=== PATIENT | female | born 2000 | race Caucasian/White ===

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

== ENCOUNTER 2018-06-23 12:18 | Emergency (ER) | payer OTHER, SELFPAY ==
--- NOTE | 2018-06-23 13:58 | RAD ---
2 VIEWS CHEST: Date: 06/23/18 COMPARISON: None. HISTORY: Cough and chest pain for a month. FINDINGS: Two views of the chest show normal sized cardiomediastinal silhouette. There is no evidence of consol idation, mass, or pleural effusion. The bones are unremarkable. IMPRESSION: No evidence of acute cardiopulmonary disease. POS: [facility]
[2018-06-23] MEDS ORDERED: Ketorolac Tromethamine 30 MG/ML VIAL ONE (14:33)
== END 2018-06-23 15:00 | disposition home or self-care (01) ==
LOC: ERS 12:18
DX: M94.0 Chondrocostal junction syndrome [Tietze] (principal); F41.9 Anxiety disorder, unspecified; Z71.6 Tobacco abuse counseling
CPT/HCPCS: 71046; 93005; 99406; J1885

== ENCOUNTER 2018-12-27 18:42 | Emergency (ER) | payer SELFPAY ==
--- NOTE | 2018-12-27 20:12 | RAD ---
RADIOGRAPH CHEST 2 VIEWS: DATE: 12/27/2018 HISTORY: 18-year-old female with cough and chest tightness FINDINGS: There is no airspace density, pulmonary edema, pleural effusion, pneumothorax, or cardiomegaly. IMPRESSION: No acute cardiopulmonary findings.
[2018-12-27] MEDS ORDERED: Dexamethasone 10 MG/ML VIAL ONE (20:31)
[2018-12-27] MEDS ORDERED: Ondansetron ODT 4 MG TAB ONE ×2 (20:31→20:33)
== END 2018-12-27 20:42 | disposition home or self-care (01) ==
LOC: ERS 18:42
DX: J20.9 Acute bronchitis, unspecified (principal); F41.9 Anxiety disorder, unspecified
CPT/HCPCS: 71046; J1100; Q0162

== ENCOUNTER 2019-10-19 08:37 | Emergency (ER) | payer SELFPAY ==
[2019-10-19 09:05] LABS: #Basophils 0.1 thou/uL (0.0-0.2); #Eosinphils 0.2 thou/uL (0.0-0.7); #Lymphocytes 1.8 thou/uL (1.20-3.40); #Monocytes 0.4 thou/uL (0.11-0.59); #Neutrophils 2.4 thou/uL (1.40-6.50); %Basophils 1.2 % (0.0-1.0); %Eosinophils 4.3 % (0.0-10.0); %Lymphocytes 37.4 % (28.0-48.0); %Monocytes 7.7 % (0.0-4.0); %Neutrophils 49.4 % (31.0-61.0); Hemoglobin 13.1 g/dL (12.0-16.0); Mean Corpuscular HGB CONC 32.9 g/dL (32.0-36.0); Mean Corpuscular Hemoglobin 30.6 pg (25.0-35.0); Mean Corpuscular Volume 92.9 fL (78.0-98.0); Mean Platelet Volume 9.5 fL (7.4-10.4); Platelet Count 205 thou/uL (130-400); RBC Distribution Width 11.1 % (11.5-14.5); Red Blood Cell (RBC) Count 4.27 mill/uL (4.00-5.20); White Blood Cell (WBC) Count 4.9 thou/uL (4.8-10.8)
[2019-10-19 09:28] LABS: ALT (SGPT) 9 U/L (8-55); AST (SGOT) 14 U/L (5-34); Albumin 4.3 g/dL (3.5-5.0); Alkaline Phosphatase 54 U/L (40-100); Anion Gap 9 mmol/L (10-20); BUN (Urea Nitrogen) 10 mg/dL (7.0-18.7); Bilirubin, Total 0.4 mg/dL (0.2-1.2); Calc. Creatinine Clearance 0 mL/min (70-130); Calcium 9.3 mg/dL (7.8-10.44); Carbon Dioxide 28 mmol/L (22-29); Chloride 107 mmol/L (98-107); Estimated GFR-MDRD 90; Glucose 82 mg/dL (70-105); Lipase 10 U/L (8-78); Potassium 4.5 mmol/L (3.5-5.1); Protein, Total 7.3 g/dL (6.0-8.3); Sodium 139 mmol/L (136-145)
[2019-10-19 09:54] LABS: MONO NEGATIVE CONTROL ZONE White (Negative) (White); MONO POSITIVE CONTROL Pink Line (Positive) (PINK/RED); Mononucleosis NEGATIVE (NEGATIVE)
[2019-10-19] MEDS ORDERED: Ketorolac Tromethamine 30 MG/ML VIAL ONE (10:24)
[2019-10-19 10:31] LABS: Bilirubin Negative (Negative); Blood, Urine Negative (Negative); Clarity Clear (Clear); Glucose, Urine (Dipstick) Normal (Negative); Leukocyte Negative Leu/uL (Negative); Nitrite Negative (Negative); Protein, Urine (Dipstick) Negative (Neg-Trace); Urobilinogen Normal mg/dL (Less than 2)
[2019-10-19 10:35] LABS: Pregnancy Test - Urine (BHCG) Negative (Negative); Pregu Control Background? CLEAR/WHITE (CLR/WHITE); Pregu Control Bar Appear? YES (CONTROL BAR); Specific Gravity 1.026 (1.002-1.036)
[2019-10-19] MEDS ORDERED: Iopamidol-370 76% 500 ML 1 ML ONE (11:06)
--- NOTE | 2019-10-19 11:44 | CT ---
CT ABDOMEN AND PELVIS PERFORMED WITH CONTRAST ENHANCEMENT: HISTORY: Left-sided abdomen pain onset yesterday. FINDINGS: The lung bases are clear of infiltrative process. The liver, spleen, pancreas, and gallbladder regions all appear unremarkable. Right and left adrenal glands are normal in appearance. Right and left kidneys are normal in size. There is a 4 mm upper pole nonobstructing right renal calculus. No left renal calculi are seen. I d o not see any evidence for a ureteral calculus. There is no significant periaortic or mesenteric melvin nopathy. CT OF PELVIS PERFORMED WITH CONTRAST ENHANCEMENT: There are follicles seen involving the adnexa. Some mild free fluid noted. This may indicate that t here has been a ruptured follicle. The endometrium is somewhat thickened in appearance. There is a lack of intraabdominal fat. This makes it difficult to definitely visualize the appendix, but I see no evidence for appendicitis. IMPRESSION: 1. Prominent follicles involving the adnexa with a mild amount of free fluid. This would indicate p ossibly there has been a ruptured follicle. 2. Punctate nonobstructing right renal calculus. POS: [facility]
== END 2019-10-19 12:25 | disposition home or self-care (01) ==
LOC: ERS 08:37
DX: N83.202 Unspecified ovarian cyst, left side (principal); J45.909 Unspecified asthma, uncomplicated; F41.9 Anxiety disorder, unspecified; Z79.51 Long term (current) use of inhaled steroids
CPT/HCPCS: 36415; 74177; 80053; 81003; 81025; 83690; 85025; 86308; 96374; J1885; Q9967

== ENCOUNTER 2020-11-11 19:43 | Emergency (ER) | payer OTHER ==
[2020-11-11 21:04] LABS: #Basophils 0.1 thou/uL (0.0-0.2); #Eosinphils 0.1 thou/uL (0.0-0.7); #Lymphocytes 2.1 thou/uL (1.20-3.40); #Monocytes 0.6 thou/uL (0.11-0.59); #Neutrophils 5.4 thou/uL (1.40-6.50); %Basophils 0.8 % (0.0-1.0); %Eosinophils 1.2 % (0.0-10.0); %Monocytes 6.9 % (0.0-10.0); %Neutrophils 66.2 % (42.0-75.0); BHCG - Serum POSITIVE (NEGATIVE); Hemoglobin 13.1 g/dL (12.0-16.0); Mean Corpuscular HGB CONC 33.6 g/dL (32.0-36.0); Mean Corpuscular Volume 92.2 fL (78.0-98.0); Mean Platelet Volume 9.3 fL (7.4-10.4); Platelet Count 220 thou/uL (130-400); Pregs Control Background? CLEAR/WHITE (CLR/WHITE); Pregs Control Bar Appear? YES (CONTROL BAR); RBC Distribution Width 11.8 % (11.5-14.5); Red Blood Cell (RBC) Count 4.22 mill/uL (4.20-5.40); White Blood Cell (WBC) Count 8.2 thou/uL (4.8-10.8)
[2020-11-11 21:19] LABS: Bilirubin Negative (Negative); Blood, Urine Negative (Negative); Clarity Clear (Clear); Glucose, Urine (Dipstick) Normal (Negative); Ketone, Urine Negative (Negative); Leukocyte Negative Leu/uL (Negative); Nitrite Negative (Negative); Protein, Urine (Dipstick) Negative (Neg-Trace); Specific Gravity, Urine 1.024 (1.002-1.036); Urobilinogen Normal mg/dL (Less than 2)
[2020-11-11 21:29] LABS: ALT (SGPT) 7 U/L (8-55); AST (SGOT) 12 U/L (5-34); Albumin 3.9 g/dL (3.5-5.0); Alkaline Phosphatase 52 U/L (40-110); Anion Gap 14 mmol/L (10-20); BUN (Urea Nitrogen) 7 mg/dL (7.0-18.7); Bilirubin, Total Less than 0.2 mg/dL (0.2-1.2); Calc. Creatinine Clearance 0 mL/min (70-130); Calcium 9.1 mg/dL (7.8-10.44); Carbon Dioxide 21 mmol/L (22-29); Chloride 105 mmol/L (98-107); Globulin 3.3 g/dL (2.4-3.5); Glucose 86 mg/dL (70-105); Potassium 3.9 mmol/L (3.5-5.1); Protein, Total 7.2 g/dL (6.0-8.3); Sodium 136 mmol/L (136-145)
== END 2020-11-11 23:13 | disposition home or self-care (01) ==
LOC: ERS 19:43
DX: O26.891 Other specified pregnancy related conditions, first trimester (principal); R10.30 Lower abdominal pain, unspecified; O99.511 Diseases of the respiratory system complicating pregnancy, first trimester; J45.909 Unspecified asthma, uncomplicated
CPT/HCPCS: 36415; 76856; 80053; 81003; 84702; 84703; 85025; 93976

== ENCOUNTER 2021-12-29 18:01 | Emergency (ER) | payer OTHER, SELFPAY ==
[2021-12-29 18:44] LABS: #Eosinphils 0.2 thou/uL (0.0-0.7); #Lymphocytes 1.7 thou/uL (1.20-3.40); #Monocytes 0.7 thou/uL (0.11-0.59); #Neutrophils 2.9 thou/uL (1.40-6.50); %Basophils 0.3 % (0.0-1.0); %Eosinophils 4.4 % (0.0-10.0); %Lymphocytes 30.4 % (21.0-51.0); %Monocytes 11.9 % (0.0-10.0); %Neutrophils 52.9 % (42.0-75.0); Hemoglobin 13.5 g/dL (12.0-16.0); Mean Corpuscular Hemoglobin 29.4 pg (27.0-31.0); Mean Corpuscular Volume 91.9 fL (78.0-98.0); Mean Platelet Volume 9.2 fL (7.4-10.4); Platelet Count 225 thou/uL (130-400); RBC Distribution Width 12.4 % (11.5-14.5); White Blood Cell (WBC) Count 5.5 thou/uL (4.8-10.8)
[2021-12-29 18:45] LABS: BHCG - Serum Negative (NEGATIVE); Pregs Control Background? CLEAR/WHITE (CLR/WHITE); Pregs Control Bar Appear? YES (CONTROL BAR)
[2021-12-29 19:09] LABS: Acetaminophen Less than 10.0 mcg/mL (10.0-30.0); Alcohol Less than 10 mg/dL (Less than 10); Salicylate Less than 8.0 mg/dL (15.0-30.0)
[2021-12-29 19:10] LABS: ALT (SGPT) 10 U/L (8-55); AST (SGOT) 18 U/L (5-34); Albumin 4.3 g/dL (3.5-5.0); Alkaline Phosphatase 79 U/L (40-110); Anion Gap 10 mmol/L (10-20); BUN (Urea Nitrogen) 8 mg/dL (7.0-18.7); Bilirubin, Total 0.3 mg/dL (0.2-1.2); Calc. Creatinine Clearance 0 mL/min (70-130); Calcium 9.4 mg/dL (7.8-10.44); Carbon Dioxide 27 mmol/L (22-29); Chloride 108 mmol/L (98-107); Globulin 3.1 g/dL (2.4-3.5); Glucose 95 mg/dL (70-105); Potassium 3.7 mmol/L (3.5-5.1); Protein, Total 7.4 g/dL (6.0-8.3); Sodium 141 mmol/L (136-145)
[2021-12-29] MEDS ORDERED: Bacitracin 1 PK ONE (19:48)
[2021-12-29 19:54] LABS: Amphetamine Not Detected (NotDetected); Barbiturates Screen Not Detected (NotDetected); Benzodiazepine Screen Not Detected (NotDetected); Cocaine Metabolite Screen Not Detected (NotDetected); Methadone Not Detected (NotDetected); Methamphetamine Not Detected (NotDetected); Opiate Screen Not Detected (NotDetected); Oxycodone Screen Not Detected (NotDetected); Phencyclidine (PCP) Not Detected (NotDetected); THC/Cannabinoid Screen Detected (NotDetected); Tricyclic Screen Not Detected (NotDetected)
[2021-12-29 20:10] LABS: Bilirubin Negative (Negative); Blood, Urine Negative (Negative); Clarity Turbid (Clear); Glucose, Urine (Dipstick) Normal (Negative); Ketone, Urine Negative (Negative); Leukocyte Negative Leu/uL (Negative); Nitrite Negative (Negative); Protein, Urine (Dipstick) Negative (Neg-Trace); Specific Gravity, Urine 1.022 (1.002-1.036); Urobilinogen Normal mg/dL (Less than 2)
[2021-12-29] MEDS ORDERED: Nicotine 21 MG PATCH TOP SCH (20:15)
== END 2021-12-29 22:40 | disposition home or self-care (01) ==
LOC: ERS 18:01
DX: F43.20 Adjustment disorder, unspecified (principal); J45.909 Unspecified asthma, uncomplicated; F41.9 Anxiety disorder, unspecified; F32.A Depression, unspecified
CPT/HCPCS: 36415; 80053; 80306; 80307; 81003; 84703; 85025; 93005

== ENCOUNTER 2022-02-08 06:21 | Emergency (ER) | payer OTHER ==
[2022-02-08] MEDS ORDERED: diphenhydrAMINE 50 MG/ML VIAL ONE (08:45)
[2022-02-08] MEDS ORDERED: Magnesium 2 GM/50 ML BAG (IN WATER) ONE (08:45)
[2022-02-08] MEDS ORDERED: methylPREDNISolone Sod Succ/PF 125 MG/2 ML VIAL ONE (08:45)
[2022-02-08] MEDS ORDERED: Ketorolac Tromethamine 30 MG/ML VIAL ONE (08:46)
[2022-02-08 08:51] LABS: BHCG - Serum Negative (NEGATIVE); Pregs Control Background? CLEAR/WHITE (CLR/WHITE); Pregs Control Bar Appear? YES (CONTROL BAR)
[2022-02-08 08:57] LABS: #Basophils 0.1 thou/uL (0.0-0.2); #Eosinphils 0.1 thou/uL (0.0-0.7); #Lymphocytes 2.1 thou/uL (1.20-3.40); #Monocytes 0.7 thou/uL (0.11-0.59); #Neutrophils 5.9 thou/uL (1.40-6.50); %Basophils 0.7 % (0.0-1.0); %Eosinophils 1.1 % (0.0-10.0); %Lymphocytes 23.5 % (21.0-51.0); %Monocytes 7.5 % (0.0-10.0); %Neutrophils 67.2 % (42.0-75.0); Hemoglobin 13.1 g/dL (12.0-16.0); Mean Corpuscular HGB CONC 32.1 g/dL (32.0-36.0); Mean Corpuscular Hemoglobin 29.1 pg (27.0-31.0); Mean Corpuscular Volume 90.8 fL (78.0-98.0); Platelet Count 198 thou/uL (130-400); RBC Distribution Width 12.1 % (11.5-14.5); White Blood Cell (WBC) Count 8.8 thou/uL (4.8-10.8)
[2022-02-08 09:02] LABS: ALT (SGPT) 10 U/L (8-55); AST (SGOT) 13 U/L (5-34); Albumin 3.8 g/dL (3.5-5.0); Alkaline Phosphatase 66 U/L (40-110); Anion Gap 9 mmol/L (10-20); BUN (Urea Nitrogen) 8 mg/dL (7.0-18.7); Bilirubin, Total 0.5 mg/dL (0.2-1.2); Calc. Creatinine Clearance 0 mL/min (70-130); Calcium 8.7 mg/dL (7.8-10.44); Carbon Dioxide 26 mmol/L (22-29); Chloride 107 mmol/L (98-107); Globulin 3.1 g/dL (2.4-3.5); Glucose 77 mg/dL (70-105); Potassium 3.5 mmol/L (3.5-5.1); Protein, Total 6.9 g/dL (6.0-8.3); Sodium 138 mmol/L (136-145)
[2022-02-08 10:15] LABS: Bilirubin Negative (Negative); Blood, Urine Negative (Negative); Clarity Clear (Clear); Glucose, Urine (Dipstick) Normal (Negative); Ketone, Urine Negative (Negative); Leukocyte Negative Leu/uL (Negative); Nitrite Negative (Negative); Protein, Urine (Dipstick) Negative (Neg-Trace); Specific Gravity, Urine 1.003 (1.002-1.036); Urobilinogen Normal mg/dL (Less than 2); pH, Urine 6.5 (5.0-9.0)
== END 2022-02-08 10:42 | disposition home or self-care (01) ==
LOC: ERS 06:21
DX: R51.9 Headache, unspecified (principal); M25.519 Pain in unspecified shoulder; R07.9 Chest pain, unspecified; J45.909 Unspecified asthma, uncomplicated; F17.210 Nicotine dependence, cigarettes, uncomplicated; Z79.899 Other long term (current) drug therapy
CPT/HCPCS: 36415; 71045; 80053; 81003; 84484; 84703; 85025; 93005; 96365; 96375; J1200; J1885; J2930; J3475

== ENCOUNTER 2022-07-15 12:20 | Emergency (ER) | payer OTHER, SELFPAY ==
[2022-07-15] MEDS ORDERED: Dexameth. Sod Phosp. 10 MG/ML (CHEMO USE ONLY) ONE (13:00)
[2022-07-15 14:35] LABS: MONO NEGATIVE CONTROL ZONE White (Negative) (White); MONO POSITIVE CONTROL Pink Line (Positive) (PINK/RED); Mononucleosis NEGATIVE (NEGATIVE)
== END 2022-07-15 14:46 | disposition home or self-care (01) ==
LOC: ERS 12:20
DX: J02.8 Acute pharyngitis due to other specified organisms (principal); F17.290 Nicotine dependence, other tobacco product, uncomplicated
CPT/HCPCS: 36415; 86308; 87081; 87430; 99283; J1100

== ENCOUNTER 2024-02-26 11:37 | Emergency (ER) | payer SELFPAY ==
[2024-02-26 11:57] LABS: #Basophils 0.03 10x3/uL (0.0-0.2); %Basophils 0.5 % (0.0-1.0); %Eosinophils 1.8 % (0.0-10.0); %Lymphocytes 31.2 % (21.0-51.0); %Monocytes 7.7 % (0.0-10.0); %Neutrophils 58.6 % (42.0-75.0); Hematocrit 41.7 % (36.0-47.0); Hemoglobin 14.2 g/dL (12.0-16.0); Mean Corpuscular HGB CONC 34.1 g/dL (32.0-36.0); Mean Corpuscular Hemoglobin 31.1 pg (27.0-31.0); Mean Corpuscular Volume 91.2 fL (78.0-98.0); Mean Platelet Volume 11.3 fL (7.4-10.4); Platelet Count 233 10x3/uL (130-400); RBC Distribution Width 12.7 % (11.5-14.5); Red Blood Cell (RBC) Count 4.57 mill/uL (4.20-5.40)
[2024-02-26 12:08] LABS: Bilirubin Negative (Negative); Blood, Urine Negative (Negative); Glucose, Urine (Dipstick) Negative (Negative); Ketone, Urine Negative (Negative); Leukocyte Negative (Negative); Nitrite Negative (Negative); Protein, Urine (Dipstick) Negative (Neg-Trace); Specific Gravity, Urine 1.025 (1.005-1.030); Urobilinogen 0.2 mg/dL (Less than 2)
[2024-02-26 12:16] LABS: CAUTI Indications for Culture Dysuria,urgency,freq; RBC/HPF 0-3 HPF (0-3); WBC/HPF 0-3 HPF (0-3)
[2024-02-26 12:16] LABS: BHCG - Serum Negative (NEGATIVE); Pregs Control Background? CLEAR/WHITE (CLR/WHITE); Pregs Control Bar Appear? YES (CONTROL BAR)
[2024-02-26 12:20] LABS: Clarity Hazy (Clear)
[2024-02-26 12:24] LABS: ALT (SGPT) 14 U/L (8-55); AST (SGOT) 16 U/L (5-34); Albumin 4.1 g/dL (3.5-5.0); Alkaline Phosphatase 55 U/L (40-110); Anion Gap 13 mmol/L (10-20); BUN (Urea Nitrogen) 12 mg/dL (7.0-18.7); Bilirubin, Total 0.4 mg/dL (0.2-1.2); Calc. Creatinine Clearance 0 mL/min (70-130); Calcium 9.2 mg/dL (7.8-10.44); Carbon Dioxide 21 mmol/L (22-29); Chloride 110 mmol/L (98-107); Estimated GFR 97; Globulin 3.6 g/dL (2.4-3.5); Glucose 88 mg/dL (70-105); Lipase 9 U/L (8-78); Potassium 3.7 mmol/L (3.5-5.1); Protein, Total 7.7 g/dL (6.0-8.3); Sodium 140 mmol/L (136-145)
[2024-02-26 12:27] LABS: Bacteria/HPF 1+ HPF (None Seen)
[2024-02-26] MEDS ORDERED: Morphine 4 MG/ML VIAL ONE (12:27)
[2024-02-26 12:31] LABS: Urine Culture Reflex No No
[2024-02-26] MEDS ORDERED: Iopamidol 370 76% 100 ML VIAL ONE (14:06)
== END 2024-02-26 15:02 | disposition home or self-care (01) ==
LOC: ERS 11:37
DX: N83.202 Unspecified ovarian cyst, left side (principal); F17.290 Nicotine dependence, other tobacco product, uncomplicated
CPT/HCPCS: 74177; 76856; 80053; 81001; 83690; 84703; 85025; 96374; J2270; Q9967

== ENCOUNTER 2024-06-23 17:06 | Emergency (ER) | payer SELFPAY ==
[~2024-06-23 17:06] MED LIST: Iopamidol-370 76% 500 ML MDV (1 ML CHARGE) ONE
[2024-06-23] MEDS ORDERED: Fluconazole 100 MG TAB ONE (17:44)
[2024-06-23 17:49] LABS: #Basophils 0.04 10x3/uL (0.0-0.2); %Basophils 0.5 % (0.0-1.0); %Eosinophils 2.1 % (0.0-10.0); %Lymphocytes 35.8 % (21.0-51.0); %Monocytes 8.2 % (0.0-10.0); %Neutrophils 53.2 % (42.0-75.0); Hematocrit 42.4 % (36.0-47.0); Hemoglobin 13.5 g/dL (12.0-16.0); Mean Corpuscular HGB CONC 31.8 g/dL (32.0-36.0); Mean Corpuscular Hemoglobin 29.3 pg (27.0-31.0); Mean Corpuscular Volume 92.2 fL (78.0-98.0); Mean Platelet Volume 10.9 fL (7.4-10.4); Platelet Count 289 10x3/uL (130-400); RBC Distribution Width 12.5 % (11.5-14.5)
[2024-06-23 18:08] LABS: ALT (SGPT) 15 U/L (8-55); AST (SGOT) 16 U/L (5-34); Alkaline Phosphatase 53 U/L (40-110); Anion Gap 12 mmol/L (10-20); BUN (Urea Nitrogen) 10 mg/dL (7.0-18.7); Bilirubin, Total 0.3 mg/dL (0.2-1.2); Calc. Creatinine Clearance 0 mL/min (70-130); Calcium 9.3 mg/dL (7.8-10.44); Carbon Dioxide 23 mmol/L (22-29); Chloride 106 mmol/L (98-107); Estimated GFR 81; Globulin 3.2 g/dL (2.4-3.5); Glucose 123 mg/dL (70-105); Lipase 9 U/L (8-78); Potassium 3.5 mmol/L (3.5-5.1); Protein, Total 7.2 g/dL (6.0-8.3); Sodium 137 mmol/L (136-145)
[2024-06-23 18:23] LABS: HCG, Total Quant Less than 2.42 mIU/mL (See Ranges)
[2024-06-23 18:24] LABS: Bilirubin Negative (Negative); Blood, Urine Negative (Negative); CAUTI Indications for Culture Pelvic or flank pain; Clarity Clear (Clear); Glucose, Urine (Dipstick) Normal (Negative); Ketone, Urine Negative (Negative); Leukocyte Negative Leu/uL (Negative); Nitrite Negative (Negative); Protein, Urine (Dipstick) Negative (Neg-Trace); RBC/HPF 0-3 HPF (0-3); Specific Gravity, Urine 1.013 (1.002-1.036); Squamous Epithelial 0-3 HPF (0-3); Urobilinogen Normal mg/dL (Less than 2); pH, Urine 5.5 (5.0-9.0)
[2024-06-23 18:25] LABS: Bacteria/HPF Rare-Few HPF (None Seen)
[2024-06-23 18:26] LABS: Thyroid Stimulating Hormone 0.3911 uIU/mL (0.35-4.94)
[2024-06-23 18:26] LABS: Urine Culture Reflex No No
[2024-06-23] MEDS ORDERED: cefTRIAXone (ROCEPHIN) 500 MG VIAL ONE (18:51)
[2024-06-23] MEDS ORDERED: Morphine 4 MG/ML VIAL ONE (18:52)
[2024-06-23 20:31] LABS: Lactic Acid 0.65 mmol/L (0.5-2.2)
[2024-06-25 12:13] LABS: Chlamydia by PCR, Vaginal Swab Not Detected (NotDetected); GC by PCR, Vaginal Swab Not Detected (NotDetected)
== END 2024-06-23 21:22 | disposition home or self-care (01) ==
LOC: ERS 17:06
DX: N73.9 Female pelvic inflammatory disease, unspecified (principal); N76.0 Acute vaginitis; B96.89 Other specified bacterial agents as the cause of diseases classified elsewhere; F17.290 Nicotine dependence, other tobacco product, uncomplicated
CPT/HCPCS: 74177; 76856; 80053; 81001; 83605; 83690; 84443; 84702; 85025; 87040; 87077; 87086; 87186; 87480; 87491; 87510; 87591; 87660; 93005; 96374; 96375; J0696; J2272; Q9967

== ENCOUNTER 2024-10-06 17:33 | Emergency (ER) | payer SELFPAY ==
[2024-10-06] MEDS ORDERED: HYDROcodone/Acetaminophen 10/325 mg Tablet ONE (18:25)
== END 2024-10-06 18:35 | disposition home or self-care (01) ==
LOC: ERS 17:33
DX: S63.501A Unspecified sprain of right wrist, initial encounter (principal); F17.290 Nicotine dependence, other tobacco product, uncomplicated; X58.XXXA Exposure to other specified factors, initial encounter
CPT/HCPCS: 99283